=== PATIENT | female | born 1975 | race Caucasian/White ===

== ENCOUNTER 2016-10-22 19:23 | Emergency (ER) | payer MEDICAID, OTHER ==
[~2016-10-22] VITALS: Ht 162.6 cm; Wt 100.5 kg
[~2016-10-22 19:23] MED LIST: ASPI1TAB2 PO; ONDA-43 PO
[2016-10-22 19:27] VITALS: Ht 162.6 cm; Wt 100.5 kg
[2016-10-22] MEDS ORDERED: GUAI120S26 PO (19:34)
[2016-10-22] MEDS ORDERED: IBUP400T22 PO (19:34)
[2016-10-22] MEDS ORDERED: ALBU8.5H3 INH (19:34)
[2016-10-22] MEDS ORDERED: CETI10CA PO (19:34)
[2016-10-22] MEDS ORDERED: FLUT9.9S NASAL (19:34)
--- NOTE | 2016-10-22 19:43 | ERD ---
ER Documentation Chief Complaint Date/Time DATE: 10/22/16 TIME: 19:41 Chief Complaint cough x 4 days, chest congestion HPI 41-year-old female presents to emergency department for complaints of cough, runny nose, nasal congestion, on and off wheezing for 4 days. Patient has been having dry cough, does not cough up any phlegm or blood. Patient does not have any sore throat or ear pain. Patient denies any chest pain or palpitations. Patient did not take any medications to symptoms. Patient denies any fever or chills. ROS All systems reviewed and are negative except as per history of present illness. Medications Home Meds Active Scripts Albuterol Sulfate* (Proair HFA*) 8.5 Gm Hfa.aer.ad, 2 PUFF INH Q4H Y for WHEEZING AND SOB, #1 INHALER Prov:RAD MARES NP 10/22/16 Fluticasone Propionate (Flonase Allergy Relief) 9.9 Ml [place].susp, 1 SPRAY NASAL BID, #1 BOTTLE TO EACH NOSTRIL Prov:RAD MARES NP 10/22/16 Ibuprofen* (Motrin*) 400 Mg Tab, 400 MG PO Q6H Y for PAIN AND OR ELEVATED TEMP, #30 TAB Prov:RAD MARES NP 10/22/16 Cetirizine Hcl* (Zyrtec*) 10 Mg Capsule, 10 MG PO DAILY, #30 TAB.CHEW Prov:RAD MARES NP 10/22/16 Cjqcixwxmsi-A-Odnsyzvlds Hb* (Guaifenesin* DM Syrup) 120 Ml Syrup, 10 ML PO Q4H Y for COUGH, #120 ML Prov:RAD MARES NP 10/22/16 Ondansetron Hcl* (Zofran*) 4 Mg Tab, 4 MG PO Q4H Y for NAUSEA AND OR VOMITING, # 20 TAB Prov:BEBETO SUBRAMANIAN PA-C 08/24/15 Mjdmwbh-Ocjpnjjylokwe-Ipfujsux* (Excedrin Extra Strength*) 250-250-65 Mg Tablet , 1 TAB PO Q6H Y for PAIN, #30 TAB Prov:BEBETO SUBRAMANIAN PA-C 08/24/15 Allergies Allergies: Coded Allergies: No Known Allergy (Unverified , 10/22/16) PMhx/Soc History of Surgery: Yes (csect x3, cataracts bilateral, fibroids) Hx Alcohol Use: No Hx Substance Use: No Hx Tobacco Use: No FmHx Family History: No coronary disease, No diabetes, No other Physical Exam Vitals Vital Signs Date Time Temp Pulse Resp B/P Pulse Ox O2 Delivery O2 Flow Rate FiO2 10/22/16 19:27 97.4 83 20 120/64 99 Physical Exam GENERAL: The patient is well developed and appropriate for usual state of health, in no apparent distress. HEENT: Atraumatic. Ears: Normal tympanic membrane, no erythema or bulging. No ear canal swelling. No ear discharge. Nose: Erythematous nasal turbinates with clear nasal discharge. Throat: oropharynx erythematous with postnasal drip. No tonsillar swelling or tonsillar exudates. No lymphadenopathy. CHEST: Clear to auscultation bilaterally. There are no rales, wheezes or rhonchi. HEART: Regular rate and rhythm. No murmurs, clicks, rubs or gallops. No S3 or S4. ABDOMEN: Soft, nontender and nondistended. Good bowel sounds. No rebound or guarding. No gross peritonitis. No gross organomegaly or masses. No Baron sign or McBurney point tenderness. BACK: No midline or flank tenderness. EXTREMITIES: Equal pulses bilaterally. There is no peripheral clubbing, cyanosis or edema. No focal swelling or erythema. Full range of motion. Grossly neurovascularly intact. NEURO: Alert and oriented. Cranial nerves 2-12 intact. Motor strength in all 4 extremities with 5/5 strength. Sensation grossly intact. Normal speech and gait. SKIN: There is no apparent rash or petechia. The skin is warm and dry. HEMATOLOGIC AND LYMPHATIC: There is no evidence of excessive bruising or lymphedema. No gross cervical, axillary, or inguinal lymphadenopathy. Procedures/MDM Medical Decision Making: Patient symptoms are most likely consistent with acute bronchitis, which viral in origin. There is low suspicion for Pneumonia at this time since patients lungs sounds are clear, patient O2 saturation is normal and patient doesnt show any respiratory distress. Radiology exam is not indicated at this time. There is low suspicion for other cardiopulmonary emergencies at this time such as CHF, Pulmonary Embolism, Pneumothorax, or any other cardiopulmonary emergencies at this time. There is low suspicion for sepsis. Patient appears well and is hemodynamically stable. Patient does not have any fever . Disposition: Home. Condition: Stable Prescriptions: Guaifenesin DM Zyrtec ibuprofen Flonase albuterol Instructions: Patient is advised to take medications as prescribed. Patient is advised to rest. Patient advised to increase fluid intake, do humidifier at home and if possible, do salt water gargles. Patient is advised that if symptoms are worse, shortness of breath, uncontrolled fever, stridor, vomiting, worst signs and symptoms to return to emergency department immediately. Otherwise, patient is advised to follow up with primary doctor in 5-7 days. Departure Diagnosis: Primary Impression: Acute bronchitis Bronchitis organism: unspecified organism Qualified Code: J20.9 - Acute bronchitis, unspecified organism Condition: Stable Patient Instructions: Bronchitis With Wheezing (Adult) RAD MARES NP Oct 22, 2016 19:43
== END 2016-10-22 19:43 | disposition home or self-care (01) ==
LOC: E/R 19:23
DX: J20.9 Acute bronchitis, unspecified (principal); Z79.82 Long term (current) use of aspirin
CPT/HCPCS: 99283

== ENCOUNTER 2017-04-11 10:25 | Emergency (ER) | payer OTHER ==
[~2017-04-11] VITALS: Ht 167.6 cm; Wt 92.0 kg
[~2017-04-11 10:25] MED LIST changes: +ALBU8.5H3 INH; +CETI10CA PO; +FLUT9.9S NASAL; +GUAI120S26 PO; +IBUP400T22 PO
[2017-04-11 10:29] VITALS: Ht 167.6 cm; Wt 92.0 kg
--- NOTE | 2017-04-11 10:42 | ERD ---
ER Documentation Chief Complaint Date/Time DATE: 04/11/17 TIME: 10:38 Chief Complaint Complains of Sorethroat x 3 days HPI 41-year-old female presents emergency department complaining of sore throat for 3 days, frontal headache. Also she has productive cough for the last 2 days. Denies blurred vision, changes in vision, neck pain, difficulty swallowing, loss of appetite, stiffness, shoulder pain, chest pain, back pain, abdominal pain, nausea, vomiting, confusion, diarrhea, urinary symptoms, loss of bowel bladder control, recent travel, recent exposure to any illness, recent antibiotic use in the last 3 months, fever, chills. No known drug allergies. No past medical history. No surgeries. Does not take any prescription medication at home. Social: Works at a company. Denies smoking, use of alcohol use of illegal drugs. ROS All systems reviewed and are negative except as per history of present illness. Medications Home Meds Active Scripts Prednisone* (Prednisone*) 20 Mg Tab, 60 MG PO DAILY for 5 Days, TAB Prov:RAMONGALILEOLACIE Smith 04/11/17 Acetaminophen* (Tylophen*) 500 Mg Capsule, 1 CAP PO Q6H Y for PAIN AND OR ELEVATED TEMP, #20 CAP Prov:FERNANDOCARLEENGALILEOLACIE Sarah 04/11/17 Ibuprofen* (Motrin*) 800 Mg Tab, 800 MG PO Q8 Y for PAIN AND OR ELEVATED TEMP, # 30 TAB Prov:FERNANDOCARLEENYOBANY 04/11/17 Albuterol Sulfate* (Proair HFA*) 8.5 Gm Hfa.aer.ad, 2 PUFF INH Q4, #1 INHALER Prov:FERNANDOCARLEENGALILEOLACIE Sarah 04/11/17 Amoxicillin/Potassium Clav (Amox-Clav 875-125 mg Tablet) 875-125 mg Tab, 1 TAB PO BID for 7 Days, #14 TAB Prov:FERNANDOCARLEENGALILEOLACIE Sarah 04/11/17 Albuterol Sulfate* (Proair HFA*) 8.5 Gm Hfa.aer.ad, 2 PUFF INH Q4H Y for WHEEZING AND SOB, #1 INHALER Prov:RAD MARES NP 10/22/16 Fluticasone Propionate (Flonase Allergy Relief) 9.9 Ml [place].susp, 1 SPRAY NASAL BID, #1 BOTTLE TO EACH NOSTRIL Prov:RAD MARES NP 10/22/16 Ibuprofen* (Motrin*) 400 Mg Tab, 400 MG PO Q6H Y for PAIN AND OR ELEVATED TEMP, #30 TAB Prov:RAD MARES NP 10/22/16 Cetirizine Hcl* (Zyrtec*) 10 Mg Capsule, 10 MG PO DAILY, #30 TAB.CHEW Prov:RAD MARES NP 10/22/16 Rgklolqynzu-O-Czvcqmjaje Hb* (Guaifenesin* DM Syrup) 120 Ml Syrup, 10 ML PO Q4H Y for COUGH, #120 ML Prov:RAD MARES NP 10/22/16 Ondansetron Hcl* (Zofran*) 4 Mg Tab, 4 MG PO Q4H Y for NAUSEA AND OR VOMITING, # 20 TAB Prov:BEBETO SUBRAMANIAN PA-C 08/24/15 Kkcwizp-Dareeqjbawlyb-Kitqkona* (Excedrin Extra Strength*) 250-250-65 Mg Tablet , 1 TAB PO Q6H Y for PAIN, #30 TAB Prov:BEBETO SUBRAMANIAN PA-C 08/24/15 Allergies Allergies: Coded Allergies: No Known Allergy (Unverified , 10/22/16) PMhx/Soc History of Surgery: Yes (csect x3, cataracts bilateral, fibroids) Hx Alcohol Use: No Hx Substance Use: No Hx Tobacco Use: No Physical Exam Vitals Vital Signs Date Time Temp Pulse Resp B/P Pulse Ox O2 Delivery O2 Flow Rate FiO2 04/11/17 10:29 98.2 79 20 140/76 95 Physical Exam Const: [] Head: Atraumatic Eyes: Normal Conjunctiva ENT: Normal External Ears, Nose and Mouth. Left ear: TM is erythematous. No bleeding. No discharge. Right ear: TM is erythematous. No bleeding. No discharge. No hearing loss bilaterally. Frontal and maxillary sinuses tenderness to palpation. Throat: Uvula is in midline not displaced. Tonsils are +1 bilaterally with redness but without exudates. Tolerating secretions. Patent airway. Speaks full and clear sentences. Neck: Full range of motion..~ No meningismus. No signs of meningeal irritation. Resp: Clear to auscultation bilaterally Cardio: Regular rate and rhythm, no murmurs Abd: Soft, non tender, non distended. Normal bowel sounds Skin: No petechiae or rashes Back: No midline or flank tenderness Ext: No cyanosis, or edema Neur: Awake and alert Psych: Normal Mood and Affect Procedures/MDM 41-year-old female presents emergency department complaining of sore throat for 3 days, frontal headache. Also she has productive cough for the last 2 days. Denies blurred vision, changes in vision, neck pain, difficulty swallowing, loss of appetite, stiffness, shoulder pain, chest pain, back pain, abdominal pain, nausea, vomiting, confusion, diarrhea, urinary symptoms, loss of bowel bladder control, recent travel, recent exposure to any illness, recent antibiotic use in the last 3 months, fever, chills. No known drug allergies. No past medical history. No surgeries. Does not take any prescription medication at home. Social: Works at a company. Denies smoking, use of alcohol use of illegal drugs. Physical exam: Left ear: TM is erythematous. No bleeding. No discharge. Right ear: TM is erythematous. No bleeding. No discharge. No hearing loss bilaterally. Frontal and maxillary sinuses tenderness to palpation. Throat: Uvula is in midline not displaced. Tonsils are +1 bilaterally with redness but without exudates. Tolerating secretions. Patent airway. Speaks full and clear sentences. Respirations even and unlabored lung sounds are clear to auscultation. No signs of meningeal irritation. No neurological deficits. No neurovascular deficits. Disease process was explained to the patient. She verbalized understanding and agreed with the treatment, plan of care, follow-up care. Differential diagnosis: peritonsillar abscess versus strep throat versus sinusitis versus otitis media Final diagnosis: Bilateral otitis media, sinusitis. Prescription: Augmentin. Motrin. Tylenol. Pro-air. Follow-up with primary care physician the next 24-48 hours. Come back here in the emergency department for any new symptoms or any worsening of symptoms. All questions and concerns were answered. Patient verbalized understanding and agreed with the plan of care. Hemodynamically stable on discharge. Departure Diagnosis: Primary Impression: Otitis media Additional Impressions: Sinusitis Sore throat Condition: Stable Additional Instructions: Follow-up with primary care physician the next 24-48 hours. Come back here in the emergency department for any new symptoms or any worsening of symptoms. All questions and concerns were answered. Patient verbalized understanding and agreed with the plan of care. YOBANY NAVARRO Apr 11, 2017 10:42
[2017-04-11] MEDS ORDERED: AMOX1TAB10 PO (10:43)
[2017-04-11] MEDS ORDERED: ALBU8.5H3 INH (10:43)
[2017-04-11] MEDS ORDERED: IBUP800T25 PO (10:43)
[2017-04-11] MEDS ORDERED: PRED20TA PO (10:44)
[2017-04-11] MEDS ORDERED: ACET500C5 PO (10:44)
[2017-04-11 11:04] VITALS: BP 140/76; RESP 20
== END 2017-04-11 11:05 | disposition home or self-care (01) ==
LOC: FTE 10:25
DX: H66.93 Otitis media, unspecified, bilateral (principal); J32.9 Chronic sinusitis, unspecified
CPT/HCPCS: 99284

== ENCOUNTER 2017-07-11 22:12 | Emergency (ER) | END 2017-07-12 01:30 | disposition home or self-care (01) ==

== ENCOUNTER 2018-05-24 19:26 | Emergency (ER) | END 2018-05-24 21:40 | disposition home or self-care (01) ==